=== PATIENT | male | born 1980 | race Caucasian/White ===

== ENCOUNTER → 2019-11-11 | Outpatient (CLI) | payer BC ==
--- NOTE | 2019-11-07 10:13 | NUR ---
CALLED AND SPOKE WITH DR. DOMINIQUE OFFICE ABOUT GETTING ORDER CHANGED TO W/O CONTRAST OR A W/ AND W/O. SHE SAID SHE WOULD HAVE TO ASK DR. VILLA AND GET BACK WITH ME. AWAITING RESPONSE. HR 11/07/2019 @ 3307
--- NOTE | 2019-11-07 10:55 | NUR ---
CALLED SCHEDULING AND TOLD THEM TO WATCH FOR A CORRECTED ORDER FOR THIS PATIENT. HR 11/07/2019 @[id number]
--- NOTE | 2019-11-08 13:51 | NUR ---
PER TJ WITH SCHEDULING DEPARTMENT, ORDER CHANGED TO W/ AND W/O CONTRAST. HR 11/08/2019 @ [id number]
[~2019-11-11] MED LIST: CATHETER FLUSH 10 ML SYR IV PRN; HOLD METFORMIN - RECEIVED CONTRAST 20 ML VIAL IV SCH; IOHEXOL 350 MG/ML 100 ML (OMNIPAQUE 350) VIAL IV ONE; NS 100 ML (IVPB) BAG IV ONE
--- NOTE | 2019-11-11 11:34 | Diagnostic Imaging Report ---
PROCEDURE: CT head with and without contrast. TECHNIQUE: Multiple contiguous axial images were obtained through the brain before and after the administration of intravenous contrast. Auto Exposure Controls were utilized during the CT exam to meet ALARA standards for radiation dose reduction. INDICATION: Headaches, dizziness, and blurred vision. COMPARISON: No prior studies are available for comparison. FINDINGS: The ventricles and sulci are within normal limits. No sulcal effacement or midline shift is identified. No acute intra-axial or extra-axial hemorrhage is detected. Postcontrast imaging is without abnormal enhancement. The cisterns are patent. The visualized paranasal sinuses are clear. IMPRESSION: Unremarkable pre and postcontrast CT of the brain. Dictated by: Dictated on workstation # [id number]
== END ==
LOC: RAD 09:56
PROVIDERS: ATTEND Family Medicine
DX: H53.8 Other visual disturbances (principal); R51 Headache; R42 Dizziness and giddiness
CPT/HCPCS: 70470

== ENCOUNTER 2022-09-24 13:29 | Emergency (ER) | payer SELFPAY ==
[~2022-09-24] VITALS: Ht 185.5 cm; Wt 81.8 kg
[2022-09-24 13:35] VITALS: BP 153/89
[2022-09-24] MEDS ORDERED: ONDANSETRON 4 MG/2 ML (SDV) Z0FRAN IVP ONE (13:45)
[2022-09-24] MEDS ORDERED: KETOROLAC 15 MG/ML VIAL IVP ONE (13:45)
[2022-09-24] MEDS ORDERED: fentaNYL INJ 100 MCG/2 ML AMP IVP ONE (13:45)
--- NOTE | 2022-09-24 13:46 | ED GU-Male ---
General Chief Complaint: - Reproductive Stated Complaint: RT FLANK PAIN Source: patient Exam Limitations: no limitations History of Present Illness Date Seen by Provider: Sep 24, 2022 Time Seen by Provider: 13:37 Initial Comments 42-year-old male with past medical history of kidney stones coming in due to right flank pain. Started a couple hours ago, intermittent, sharp, feels somewhat different from prior kidney stone. He is never required any urologic p rocedures for his stones. Endorses nausea and nonbloody nonbilious vomiting. Denies any dysuria or hematuria that he knows of. Also denies any fever, severe abdominal pain, chest pain, shortness of breath, rash, or any other concerns. Has not had anything for the pain. Allergies and Home Medications Allergies Coded Allergies: No Known Drug Allergies (Unverified , 09/24/22) Patient Home Medication List Home Medication List Reviewed: Yes Cephalexin (Cephalexin) 500 Mg Tablet, 500 MG PO QID Prescribed by: CHALINO LUU on 09/24/22 1433 Ketorolac Tromethamine (Ketorolac Tromethamine) 10 Mg Tablet, 10 MG PO Q8H PRN f or PAIN-MODERATE (5-7) Prescribed by: CHALINO LUU on 09/24/22 1433 Ondansetron (Ondansetron Odt) 4 Mg Tab.rapdis, 4 MG SL Q6H PRN for NAUSEA/VOMITING Prescribed by: CHALINO LUU on 09/24/22 1433 Oxycodone HCl (Oxycodone HCl) 5 Mg Tablet, 5 MG PO Q6H PRN for PAIN-MODERATE TO SEVERE Prescribed by: CHALINO LUU on 09/24/22 1434 Tamsulosin HCl (Flomax) 0.4 Mg Cap, 0.4 MG PO DAILY Prescribed by: CHALINO LUU on 09/24/22 1433 Review of Systems Review of Systems Constitutional: No fever EENTM: no symptoms reported Respiratory: no symptoms reported Cardiovascular: no symptoms reported Gastrointestinal: see HPI Genitourinary: see HPI Musculoskeletal: no symptoms reported Skin: no symptoms reported Psychiatric/Neurological: No Symptoms Reported Endocrine: No Symptoms Reported Past Sdrivjo-Xrqodw-Wgeony Hx Patient Social History Tobacco Use?: No Substance use?: No Alcohol Use?: No Pt feels they are or have been: No Past Medical History Surgery/Hospitalization HX: kidney stones Physical Exam Vital Signs Vital Signs - First Documented 09/24/22 13:35 Temp 36.2 Pulse 60 Resp 16 B/P (MAP) 153/89 (110) Pulse Ox 98 O2 Delivery Room Air Capillary Refill : Height, Weight, BMI Height: '" Weight: lbs. oz. kg; BMI Method: General Appearance: WD/WN, mild distress, other (Actively vomiting) HEENT: PERRL/EOMI, normal ENT inspection, pharynx normal Neck: normal inspection Cardiovascular: regular rate, rhythm, no edema, no murmur Respiratory: chest non-tender, lungs clear, normal breath sounds, no respiratory distress, no accessory muscle use Gastrointestinal: normal bowel sounds, non tender, soft; No distended, No guarding, No rebound Back: normal inspection, CVA tenderness (R); No CVA tenderness (L) Extremities: normal range of motion, non-tender, normal inspection, no pedal edema, no calf tenderness, normal capillary refill Neurologic/Psychiatric: alert, normal mood/affect Skin: normal color, warm/dry Progress/Results/Core Measures Suspected Sepsis SIRS Temperature: Pulse: Respiratory Rate: Laboratory Tests 09/24/22 13:38: White Blood Count 9.3 Blood Pressure / Mean: Laboratory Tests 09/24/22 13:38: Creatinine 1.12, Platelet Count 205, Total Bilirubin 1.4H Results/Orders Lab Results Laboratory Tests Test 09/24/22 13:35 09/24/22 13:38 Range/Units Urine Color YELLOW Urine Clarity SLIGHTLY CLOUDY Urine pH 6.0 5-9 Urine Specific [place] >=1.030 1.016-1.022 Urine Protein NEGATIVE NEGATIVE Urine Glucose (UA) NEGATIVE NEGATIVE Urine Ketones NEGATIVE NEGATIVE Urine Nitrite NEGATIVE NEGATIVE Urine Bilirubin NEGATIVE NEGATIVE Urine Urobilinogen 0.2 < = 1.0 MG/DL Urine Leukocyte Esterase NEGATIVE NEGATIVE Urine RBC (Auto) 3+ H NEGATIVE Urine RBC >100 H /HPF Urine WBC NONE /HPF Urine Crystals NONE /LPF Urine Bacteria MODERATE H /HPF Urine Casts NONE /LPF Urine Mucus LARGE H /LPF Urine Culture Indicated YES White Blood Count 9.3 4.3-11.0 10^3/uL Red Blood Count 5.20 4.30-5.52 10^6/uL Hemoglobin 16.2 13.3-17.7 g/dL Hematocrit 47 40-54 % Mean Corpuscular Volume 91 80-99 fL Mean Corpuscular Hemoglobin 31 25-34 pg Mean Corpuscular Hemoglobin Concent 34 32-36 g/dL Red Cell Distribution Width 12.4 10.0-14.5 % Platelet Count 205 130-400 10^3/uL Mean Platelet Volume 9.6 9.0-12.2 fL Immature Granulocyte % (Auto) 0 % Neutrophils (%) (Auto) 74 42-75 % Lymphocytes (%) (Auto) 20 12-44 % Monocytes (%) (Auto) 4 0-12 % Eosinophils (%) (Auto) 1 0-10 % Basophils (%) (Auto) 1 0-10 % Neutrophils # (Auto) 6.9 1.8-7.8 10^3/uL Lymphocytes # (Auto) 1.9 1.0-4.0 10^3/uL Monocytes # (Auto) 0.3 0.0-1.0 10^3/uL Eosinophils # (Auto) 0.1 0.0-0.3 10^3/uL Basophils # (Auto) 0.1 0.0-0.1 10^3/uL Immature Granulocyte # (Auto) 0.0 0.0-0.1 10^3/uL Sodium Level 139 135-145 MMOL/L Potassium Level 4.1 3.6-5.0 MMOL/L Chloride Level 101 98-107 MMOL/L Carbon Dioxide Level 26 21-32 MMOL/L Anion Gap 12 5-14 MMOL/L Blood Urea Nitrogen 7 7-18 MG/DL Creatinine 1.12 0.60-1.30 MG/DL Estimat Glomerular Filtration Rate 84 BUN/Creatinine Ratio 6 Glucose Level 131 H 70-105 MG/DL Calcium Level 9.4 8.5-10.1 MG/DL Corrected Calcium 8.5-10.1 MG/DL Total Bilirubin 1.4 H 0.1-1.0 MG/DL Aspartate Amino Transf (AST/SGOT) 17 5-34 U/L Alanine Aminotransferase (ALT/SGPT) 20 0-55 U/L Alkaline Phosphatase 91 40-136 U/L Total Protein 7.9 6.4-8.2 GM/DL Albumin 4.7 H 3.2-4.5 GM/DL Lipase 24 8-78 U/L My Orders Orders - KRUMSICK,CHALINO K MD Cbc With Automated Diff (09/24/22 13:43) Comprehensive Metabolic Panel (09/24/22 13:43) Lipase (09/24/22 13:43) Ua Culture If Indicated (09/24/22 13:43) Ct Abdomen/Pelvis Wo (09/24/22 13:43) Fentanyl Inj (Sublimaze Injection) (09/24/22 13:45) Ketorolac Injection (Toradol Injection) (09/24/22 13:45) Ondansetron Injection (Zofran Injectio (09/24/22 13:45) Urine Culture (09/24/22 13:35) Medications Given in ED Current Medications Medications Dose Ordered Sig/[place] Route Start Time Stop Time Status Last Admin Dose Admin Fentanyl Citrate 50 mcg ONCE ONCE IVP 09/24/22 13:45 09/24/22 13:47 DC 09/24/22 13:53 50 MCG Ketorolac Tromethamine 15 mg ONCE ONCE IVP 09/24/22 13:45 09/24/22 13:47 DC 09/24/22 13:53 15 MG Ondansetron HCl 4 mg ONCE ONCE IVP 09/24/22 13:45 09/24/22 13:47 DC 09/24/22 13:54 4 MG Vital Signs/I&O 09/24/22 13:35 Temp 36.2 Pulse 60 Resp 16 B/P (MAP) 153/89 (110) Pulse Ox 98 O2 Delivery Room Air Capillary Refill : Progress Note : Progress Note 42-year-old male with above history coming in due to right flank pain with nausea and vomiting. ABCs were intact and vitals were stable on presentation. Physical exam with right flank pain and no significant abdominal tenderness. Differential includes ureterolithiasis versus pyelonephritis versus less likely ruptured abdominal aneurysm versus some other etiology. An IV was placed and basic labs were obtained and were significant for normal white blood cell count, normal creatinine, normal lipase. Urinalysis with a large amount of blood and some bacteria. CT abdomen pelvis on my interpretation with multiple stones in his kidneys and 1 looks like it just went past the UVJ on the right side which is smaller. He was given IV fentanyl, Toradol, and Zofran which improved his symptoms. We will send him with a prescription for pain medication as well as nausea medications. He will need to follow-up with urology as an outpatient. He was then discharged home in stable condition with strict return precautions Diagnostic Imaging Diagonstic Imaging: CT (abd/pelvis without) Comments NAME: RBUEN CRAMER [facility] REC#: [id number] PT STATUS: REG ER : 1980 PHYSICIAN: CHALINO LUU MD ADMIT DATE: 09/24/22/ER FS Draft Date of Exam:09/24/22 CT ABDOMEN/PELVIS WO PROCEDURE: CT abdomen and pelvis without contrast. TECHNIQUE: Multiple contiguous axial images were obtained through the abdomen and pelvis without the use of intravenous contrast. Auto Exposure Controls were utilized during the CT exam to meet ALARA standards for radiation dose reduction. INDICATION: Right flank pain, noncontrasted abdominal pelvic CT performed. I have no priors. There is a tiny 2 mm calculus within the left dependent lumen of the urinary bladder at the midline. There is some minimal right-sided periureteric stranding and edema but no upstream hydronephrosis. The appearance is suggestive of recently passed stone given the provided history of right flank pain. No radiodense intraureteral stone. There are multiple bilateral nonobstructing intrarenal calculi, the largest are on the right at 5 mm and on the left 3 mm. The remaining unopacified abdominal pelvic solid and hollow viscera appeared unremarkable. IMPRESSION: Bilateral nephrolithiasis. No hydronephrosis but mild right periureteric stranding and edema with a tiny stone within the lumen of the urinary bladder likely recently passed. Dictated on workstation # [id number] Dict: 09/24/22 1426 Trans: 09/24/22 1436 CV [id number] Interpreted by: FLORA DOWNS Electronically signed by: Departure Impression Primary Impression: Ureterolithiasis Disposition: HOME, SELF-CARE Condition: Improved Departure-Patient Inst. Decision time for Depature: 14:50 Referrals: SCOTT VILLA MD (PCP) Primary Care Physician Patient Instructions: Kidney Stone, Adult ED Add. Discharge Instructions: He did pass a small kidney stone that is now sitting in your bladder. Please follow-up with your urologist of your choosing. Unfortunately there are none in our hospital system, and you can google any provider in the city that you would like to go to. Take the Toradol as needed for pain, if you have pain on top of that you can take the oxycodone. Zofran for nausea was also sent to your pharmacy. Tamsulosin was sent to help pass kidney stones as well. Scripts Cephalexin (Cephalexin) 500 Mg Tablet 500 MG PO QID for 7 Days, #28 TAB Prov: CHALINO LUU MD 09/24/22 Tamsulosin HCl (Flomax) 0.4 Mg Cap 0.4 MG PO DAILY for 14 Days, #14 CAP Prov: CHALINO LUU MD 09/24/22 Ondansetron (Ondansetron Odt) 4 Mg Tab.rapdis 4 MG SL Q6H PRN for NAUSEA/VOMITING for 5 Days, #20 TAB Prov: CHALINO LUU MD 09/24/22 Ketorolac Tromethamine (Ketorolac Tromethamine) 10 Mg Tablet 10 MG PO Q8H PRN for PAIN-MODERATE (5-7) for 3 Days, #9 TAB Prov: CHALINO LUU MD 09/24/22 Oxycodone HCl (Oxycodone HCl) 5 Mg Tablet 5 MG PO Q6H PRN for PAIN-MODERATE TO SEVERE for 3 Days, #12 TAB Prov: CHALINO LUU MD 09/24/22 Work/School Note: Work Release Form Date Seen in the Emergency Department: Sep 24, 2022 Return to Work: Sep 26, 2022 Restrictions: No Restrictions CHALINO LUU MD Sep 24, 2022 13:46
[2022-09-24 13:47] LABS: BASOPHILS # (AUTO) 0.1 10^3/uL (0.0-0.1); BASOPHILS % (AUTO) 1 % (0-10); EOSINOPHILS # (AUTO) 0.1 10^3/uL (0.0-0.3); EOSINOPHILS % (AUTO) 1 % (0-10); HEMATOCRIT 47 % (40-54); HEMOGLOBIN 16.2 g/dL (13.3-17.7); LYMPHOCYTES # (AUTO) 1.9 10^3/uL (1.0-4.0); LYMPHOCYTES % (AUTO) 20 % (12-44); MEAN CORPUSCULAR HEMOGLOBIN 31 pg (25-34); MEAN CORPUSCULAR HGB CONC 34 g/dL (32-36); MEAN CORPUSCULAR VOLUME 91 fL (80-99); MEAN PLATELET VOLUME 9.6 fL (9.0-12.2); MONOCYTES # (AUTO) 0.3 10^3/uL (0.0-1.0); MONOCYTES % (AUTO) 4 % (0-12); NEUTROPHILS # (AUTO) 6.9 10^3/uL (1.8-7.8); NEUTROPHILS % (AUTO) 74 % (42-75); PLATELET COUNT 205 10^3/uL (130-400); WHITE BLOOD COUNT 9.3 10^3/uL (4.3-11.0)
[2022-09-24 13:48] LABS: BILIRUBIN,URINE NEGATIVE (NEGATIVE); COLOR,URINE YELLOW; GLUCOSE, URINE (UA) NEGATIVE (NEGATIVE); KETONES,URINE NEGATIVE (NEGATIVE); LEUKOCYTE ESTERASE ,URINE NEGATIVE (NEGATIVE); NITRITE,URINE NEGATIVE (NEGATIVE); PROTEIN,URINE NEGATIVE (NEGATIVE)
[2022-09-24 13:50] LABS: BACTERIA,URINE MODERATE /HPF; CLARITY,URINE SLIGHTLY CLOUDY; RBC,URINE >100 /HPF
[2022-09-24 14:02] LABS: ALANINE AMINOTRANSFERASE 20 U/L (0-55); ALKALINE PHOSPHATASE 91 U/L (40-136); BILIRUBIN,TOTAL 1.4 MG/DL (0.1-1.0); BUN/CREATININE RATIO 6; CALCIUM 9.4 MG/DL (8.5-10.1); CARBON DIOXIDE 26 MMOL/L (21-32); CHLORIDE 101 MMOL/L (98-107); CREATININE SERUM 1.12 MG/DL (0.60-1.30); GFR ESTIMATED 84; GLUCOSE 131 MG/DL (70-105); POTASSIUM 4.1 MMOL/L (3.6-5.0); SODIUM 139 MMOL/L (135-145)
[2022-09-24 14:03] LABS: ALBUMIN 4.7 GM/DL (3.2-4.5); LIPASE 24 U/L (8-78); TOTAL PROTEIN 7.9 GM/DL (6.4-8.2)
[2022-09-24] MEDS ORDERED: ONDA4TAB11 SL (14:33)
[2022-09-24] MEDS ORDERED: TMSL.4C PO (14:33)
[2022-09-24] MEDS ORDERED: KETO10TA PO (14:33)
[2022-09-24] MEDS ORDERED: OXYC5TAB PO (14:33)
[2022-09-24] MEDS ORDERED: CEPH500T PO (14:33)
--- NOTE | 2022-09-24 14:37 | Diagnostic Imaging Report ---
PROCEDURE: CT abdomen and pelvis without contrast. TECHNIQUE: Multiple contiguous axial images were obtained through the abdomen and pelvis without the use of intravenous contrast. Auto Exposure Controls were utilized during the CT exam to meet ALARA standards for radiation dose reduction. INDICATION: Right flank pain, noncontrasted abdominal pelvic CT performed. I have no priors. There is a tiny 2 mm calculus within the left dependent lumen of the urinary bladder at the midline. There is some minimal right-sided periureteric stranding and edema but no upstream hydronephrosis. The appearance is suggestive of recently passed stone given the provided history of right flank pain. No radiodense intraureteral stone. There are multiple bilateral nonobstructing intrarenal calculi, the largest are on the right at 5 mm and on the left 3 mm. The remaining unopacified abdominal pelvic solid and hollow viscera appeared unremarkable. IMPRESSION: Bilateral nephrolithiasis. No hydronephrosis but mild right periureteric stranding and edema with a tiny stone within the lumen of the urinary bladder likely recently passed. Dictated by: Dictated on workstation # [id number]
[2022-09-24] MEDS ORDERED: NS IV 1000 ML 1,000 ML ONE (16:25)
== END 2022-09-24 14:40 | disposition home or self-care (01) ==
LOC: EDUNIT# 13:29 → ER FS 13:30
DX: N20.1 Calculus of ureter (principal)
CPT/HCPCS: 36415; 74176; 80053; 81000; 83690; 85025; 87088